=== PATIENT | female | born 1950 | race Two or more races ===

== ENCOUNTER → 2024-09-11 15:00 | Outpatient (REF) | payer OTHER, SELFPAY ==
[2024-09-12 14:39] LABS: Magnesium 2.3 mg/dL (1.5-2.2); Vitamin B12 625 pg/mL (180-914); Vitamin D,25 Hydroxy 69.4 ng/mL (30-100)
[2024-09-12 15:46] LABS: FOLATES,SERUM (FOLIC ACID) > 40.00 ng/mL (4.60-34.80)
[2024-09-14 11:09] LABS: G6PD Quant Test 306 (127-427); Red Blood Cell Count Test/G6PD 4.33 x10E6/uL (3.77-5.28)
== END ==
LOC: LABSPEC 15:00
PROVIDERS: Referring Provider Nurse Practitioner Family; Visit Provider Nurse Practitioner Family
DX: R53.82 Chronic fatigue, unspecified (principal); R11.0 Nausea; R35.1 Nocturia; N39.498 Other specified urinary incontinence; R39.89 Other symptoms and signs involving the genitourinary system; B34.9 Viral infection, unspecified; B34.3 Parvovirus infection, unspecified; M25.59 Pain in other specified joint; M19.90 Unspecified osteoarthritis, unspecified site; R20.2 Paresthesia of skin; R41.89 Other symptoms and signs involving cognitive functions and awareness; R51.9 Headache, unspecified; L65.9 Nonscarring hair loss, unspecified; G47.00 Insomnia, unspecified; Z72.0 Tobacco use
CPT/HCPCS: 82306; 82607; 82746; 82955; 83735